=== PATIENT | male | born 1945 | race Caucasian/White ===

== ENCOUNTER → 2023-09-04 06:33 | Outpatient (REF) | payer MEDICARE, OTHER, SELFPAY | LOC: MRI 06:33 | PROVIDERS: ATTENDING PHYSICIAN Family Medicine | DX: S32.010A Wedge compression fracture of first lumbar vertebra, initial encounter for closed fracture (principal) | CPT/HCPCS: 72148 ==

== ENCOUNTER → 2024-03-15 13:37 | Outpatient (REF) | payer MEDICARE, OTHER, SELFPAY | LOC: RCS 13:37 | PROVIDERS: ATTENDING PHYSICIAN Internal Medicine Cardiovascular Disease; FAMILY PHYSICIAN Family Medicine | DX: I50.21 Acute systolic (congestive) heart failure (principal); I42.0 Dilated cardiomyopathy | CPT/HCPCS: 93306 ==

== ENCOUNTER → 2024-07-22 12:32 | Outpatient (REF) | payer MEDICARE, OTHER, SELFPAY | LOC: REG 12:32 | PROVIDERS: ATTENDING PHYSICIAN Internal Medicine Critical Care Medicine; FAMILY PHYSICIAN Family Medicine | DX: J44.9 Chronic obstructive pulmonary disease, unspecified (principal); R91.8 Other nonspecific abnormal finding of lung field | CPT/HCPCS: 87070; 87102; 87116; 87205 ==

== ENCOUNTER → 2024-10-06 08:31 | Outpatient (REF) | payer MEDICARE, OTHER, SELFPAY | LOC: RSP 08:31 | PROVIDERS: ATTENDING PHYSICIAN Internal Medicine Critical Care Medicine; FAMILY PHYSICIAN Family Medicine | DX: J44.9 Chronic obstructive pulmonary disease, unspecified (principal); R06.09 Other forms of dyspnea | CPT/HCPCS: 94727; 94729; 88738; 94060 ==

== ENCOUNTER → 2025-03-17 12:20 | Outpatient (REF) | payer MEDICARE, OTHER, SELFPAY | LOC: RCS 12:20 | PROVIDERS: ATTENDING PHYSICIAN Internal Medicine Cardiovascular Disease; FAMILY PHYSICIAN Family Medicine | DX: I50.20 Unspecified systolic (congestive) heart failure (principal); I77.810 Thoracic aortic ectasia | CPT/HCPCS: 93306 ==

== ENCOUNTER 2025-04-08 13:20 | Emergency (ER) | payer MEDICARE, OTHER, SELFPAY ==
[2025-04-08 13:24] VITALS: BP 122/66
[2025-04-08 13:53] LABS: Hematocrit 43.6 % (39.0-52.0); Hemoglobin 14.1 g/dL (13.0-18.0); Mean Corp Hgb Conc. 32.3 g/dL (33.0-37.0); Mean Corpuscular Volume 94.2 fL (80.0-94.0); Nucleated Red Blood Cells % 0 % (-); Platelet Count 266 10^3/uL (130-400); Red Cell Dist. Width 13.3 % (11.5-14.5)
[2025-04-08 14:15] LABS: ALT (SGPT) 98 U/L (0-50); AST (SGOT) 86 U/L (17-59); Albumin 4.0 g/dl (3.5-5.0); Alkaline Phosphatase 141 U/L (38-126); Blood Urea Nitrogen 23 mg/dl (9-20); Calcium 9.0 mg/dl (8.4-10.2); Carbon Dioxide 22 mmol/L (22-30); Chloride 103 mmol/L (98-107); Glucose 109 mg/dl (70-99); Potassium 3.8 mmol/L (3.5-5.1); Sodium 137 mmol/L (135-145); Total Protein 7.2 g/dl (6.3-8.2); eGFR 56.58
[2025-04-08 14:18] LABS: COVID-19 Antigen Negative (Negative)
--- NOTE | 2025-04-08 15:00 | ED.GENMED ---
History of Present Illness
General
Chief Complaint: Cold/Flu/URI Symptoms
Source: patient
Exam Limitations: none
Time Seen by Provider: 04/08/25 14:32
Nursing documentation reviewed up to this point in time: agreed with
History of Present Illness
History of Present Illness:
79 yo male with hx of COPD, HLD, CHF, presents for cough 'coughing up all kinds of crap.' Started with sore throat 6 days ago, resolved after 3 days. Then developed cough and 'blowing my nose a lot.' Denies fever/chills, chest pain, does get SOB
with exertion. Denies n/v/ has had few 'squirts' of diarrhea past few days, has not been eating much. His PCP did teleconference yesterday and sent rx for Zithromax to his pharmacy, he has to pick it up.
is here with similar symptoms. She tested Covid positive 3 days ago.
Past History
Past History
ED Past Medical History: COPD and Hypercholesterolemia
Social History
Tobacco: Former smoker
Alcohol: None
Drug: None
Personal:
Living: with family
Review of Systems
Review of Systems
Allergies reviewed?: Yes
All Other Systems: ROS reviewed and negative except as documented in HPI and ROS
Phy Exam
Physical Exam
Physical Exam:
GENERAL: No acute distress. A&Ox3.
CONSTITUTIONAL: Afebrile.
EYES: clear, conjunctivae normal
ENMT: moist mucus membranes, Pharynx nl
RESPIRATORY: Regular respirations, nonlabored, lungs clear. No significant cough noted. Pulse ox 96% room air
CARDIOVASCULAR: Regular rate and rhythm, no murmurs, no rubs.
GI: Soft, nontender, normal BS
MUSCULOSKELETAL: Moves with ease. Well perfused.
SKIN: Warm, dry, pink
PSYCH: Normal mood and affect. Well kept, interactive and appropriate
NEUROLOGIC: Awake, alert and oriented. No focal neurological deficits
Course
Orders/Labs/Results
Orders:
Orders
04/08/25 13:28
CR Chest - 2 Views Urgent
Comment:
Reason For Exam: suspected infection
04/08/25 13:33
COVID-19 Antigen Urgent
Source: Nasal Swab
Complete Blood Count/With Diff Urgent
Comprehensive Metabolic Panel Urgent
Abnormal Lab Results
04/08/25
13:33
WBC 13.5 H 10^3/uL
(4.8-10.8)
RBC 4.63 L 10^6/uL
(4.70-6.10)
MCV 94.2 H fL
(80.0-94.0)
MCHC 32.3 L g/dL
(33.0-37.0)
MPV 10.8 H fL
(7.4-10.4)
Abs Immat Gran (auto) 0.1 H 10^3/uL
(0-0.05)
Absolute Neuts (auto) 10.9 H 10^3/uL
(1.4-6.5)
Absolute Lymphs (auto) 0.8 L 10^3/uL
(1.2-3.4)
Absolute Monos (auto) 1.6 H 10^3/uL
(0.1-0.6)
Immature Gran % 0.7 H %
(0-0.5)
Neutrophils % 80.6 H %
(42.2-75.2)
Lymphocytes % 6.1 L %
(20.5-51.1)
Monocytes % 11.9 H %
(1.7-9.3)
BUN 23 H mg/dl
(9-20)
Glucose 109 H mg/dl
(70-99)
Total Bilirubin 2.7 H mg/dl
(0.2-1.3)
AST 86 H U/L
(17-59)
ALT 98 H U/L
(0-50)
Alkaline Phosphatase 141 H U/L
(38-126)
04/08/25 13:33
04/08/25 13:33
Vital Signs
Initial and Last Documented VS:
Initial Vital Signs
Temp Pulse Resp BP Pulse Ox
97.7 F 108 20 122/66 96
04/08/25 13:24 04/08/25 13:24 04/08/25 13:24 04/08/25 13:24 04/08/25 13:24
Last Documented Vital Signs
Temp Pulse Resp BP Pulse Ox
98.5 F 79 18 110/85 96
04/08/25 16:52 04/08/25 16:52 04/08/25 16:52 04/08/25 16:52 04/08/25 16:52
MDM/Problems Addressed
Differential Diagnosis Includes:
Covid, PNA, bronchitis
MDM/Problems Addressed:
79 yo male with hx of COPD, HLD, CHF, presents for cough 'coughing up all kinds of crap.' Started with sore throat 6 days ago, resolved after 3 days. Then developed cough and 'blowing my nose a lot.' Denies fever/chills, chest pain, does get SOB
with exertion. Denies n/v/ has had few 'squirts' of diarrhea past few days, has not been eating much. His PCP did teleconference yesterday and sent rx for Zithromax to his pharmacy, he has to pick it up.
is here with similar symptoms. She tested Covid positive 3 days ago.
Covid test negative.
CBC: WBC 13.5 differential is consistent with a viral illness
CMP: No clinically significant abnormality mild elevation in liver enzymes and BUN consistent with a viral illness/COVID
Chest x-ray radiology report read: Faint opacity in the right midlung may represent atelectasis or mild viral pneumonia.
No pleural effusion or pneumothorax. The cardiomediastinal silhouette is normal. Chronic degenerative changes of the spine.
Walking up and down hallway for 5 minutes, pulse ox dipped to 90 and HR 110, after a couple minutes of rest back up to 95% and HR 80's to 90, no significant hypoxia with hx COPD and now URI
Pt son is picking up his Zithromax for him
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
He has inhaler at home to use if needed
Pt is stable for discharge
Blood pressure rechecked by me, 118/73
*Pulse Oximetry
SaO2: 96
Oxygen Mode of Delivery: Room air
Patient hypoxic: no
*Critical Care Note
Total Time (30-74mins, 75-104mins- exclusive of procedures): Not Applicable
ED Attending Note
-
Portions of this chart may have been created with voice recognition software.� Occasional wrong word or��sound alike� substitutions may have occurred due to the inherent limitations of voice recognition software.
Discharge Plan
Departure
Patient Disposition: Home (Routine Discharge)
Date of Disposition: 04/08/25
Time of Disposition: 16:22
Patient with high blood pressure during this ER visit?: No
Condition: Good
Discharge Problem:
Acute bronchitis
Instructions: Acute Bronchitis, Adult (DC)
Prescriptions:
No Action
atorvastatin [Lipitor] 40 mg Tablet
40 mg PO QPM
acetaminophen [Tylenol] 325 mg Tablet
650 mg PO TID
sertraline [Zoloft] 100 mg Tablet
100 mg PO DAILY
budesonide-formoterol [Symbicort] 160-4.5 mcg/actuation Hfa Aerosol Inhaler
2 inh INHALATION R BID
lisinopril 10 mg Tablet
10 mg PO DAILY Qty: 30 0RF
aspirin 81 mg Tablet,Chewable
81 mg PO DAILY Qty: 0 0RF
furosemide [Lasix] 20 mg tablet
20 mg PO Q OTHER DAY Qty: 15 0RF
prednisone 20 mg Tablet
40 mg PO DAILY Qty: 4 0RF
Referrals:
Madina Orourke MD [Family Provider] - Follow up in 5-7 days
Activity Restrictions/Additional Instructions:
As we discussed, take your antibiotics as prescribed by your family doctor. Rest and drink plenty of fluids.
You are being treated for bronchitis, your x-ray shows you might have a mild touch of a viral pneumonia
Return here immediately if your symptoms worsen, you have worse trouble breathing or feeling sicker in any way.
Interventions
Interventions:
*Risk Screen - Suicide Last Done: 04/08/25 13:24
*General Assessment Last Done: 04/08/25 16:52
*Neglect/Abuse Screening Last Done: 04/08/25 16:52
*ED- Fall Risk Assessment Last Done: 04/08/25 16:52
*ED COVID-19 Vaccine History Last Done: 04/08/25 16:52
*ED Influenza Vaccine History Last Done: 04/08/25 16:52
*Nursing Disposition Last Done: 04/08/25 16:52
ED- Pulmonary Assessment Last Done: 04/08/25 15:52
Discharge Date and Time
Discharge Date/Time: 04/08/25 16:57
Print Language: CHINESE
[2025-04-08 15:52] VITALS: BP 143/117
[2025-04-08 16:30] VITALS: BP 108/66
[2025-04-08 16:52] VITALS: BP 110/85
== END 2025-04-08 16:57 | disposition home or self-care (01) ==
LOC: EMR 13:20
PROVIDERS: Emergency Medicine; EMERGENCY PHYSICIAN Emergency Medicine; FAMILY PHYSICIAN Family Medicine
DX: J20.9 Acute bronchitis, unspecified (principal); J44.0 Chronic obstructive pulmonary disease with (acute) lower respiratory infection; E78.00 Pure hypercholesterolemia, unspecified; I50.9 Heart failure, unspecified; Z87.891 Personal history of nicotine dependence; Z11.52 Encounter for screening for COVID-19
CPT/HCPCS: 99284; 71046; 80053; 85025; 87811